=== PATIENT | female | born 1970 | race African-American/Black ===

== ENCOUNTER 2019-04-10 16:17 | Emergency (ER) | payer OTHER ==
[~2019-04-10] VITALS: Ht 162.6 cm; Wt 58.5 kg
[~2019-04-10 16:17] MED LIST: ALBUTEROL INHAL17 GM; ALBUTEROL INHAL17 GM IH; AMOXICILLIN 50500 MG PO; CALCIUM OYSTER500 MG PO; FLEXERIL PO; HYDROCODON-ACE1 EACH PO; IBUPROFEN 600600 M1 PO; IBUPROFEN200 M2 PO; MOTRIN IB200 MG PO; NAPROSYN500 MG PO; NORCO 5-325 TA1 EACH PO; PERCOCET 5-3251 EACH PO; PROZAC20 MG PO; SYNTHROID50 MCG PO; TRAMADOL 50 MG50 MG PO; VITAMIN D400 UNI1 PO
[2019-04-10 17:13] LABS: BASOPHILS 1.2 % (0.0-2.0); EOSINOPHILS 3.3 % (0.0-3.0); LYMPHOCYTES 50.4 % (24.0-44.0); MCHC 33.4 g/dL (28.0-37.0); MCV 89.9 fL (80.0-100.0); MONOCYTES 7.2 % (1.0-8.0); PLATELET COUNT 217 thou/uL (150-400); POLYS 37.9 % (36.0-66.0); RBC 4.34 mil/uL (4.20-5.00); RDW 16.8 % (10.5-14.5); WBC 5.3 thou/uL (4.0-11.0)
[2019-04-10 17:19] LABS: CALCIUM 9.2 mg/dL (8.5-10.1); POTASSIUM 4.1 mmol/L (3.5-5.1)
[2019-04-10 17:25] LABS: ALBUMIN 3.2 g/dL (3.4-5.0); TOTAL BILIRUBIN 0.1 mg/dL (<0.1-1.0); TOTAL PROTEIN 6.9 g/dL (6.4-8.2)
[2019-04-10] MEDS ORDERED: MUCINEX D ER 11 EACH PO (17:30)
[2019-04-10] MEDS ORDERED: TESSALON PERLE100 MG PO (17:30)
[2019-04-10] MEDS ORDERED: PREDNISONE 20 M20 MG PO (17:30)
[2019-04-10] MEDS ORDERED: PROAIR HFA8.5 GM INH (17:30)
[2019-04-10 18:11] VITALS: BP 163/84
--- NOTE | 2019-04-11 17:06 | EKG ---
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 04/11/19 1705 1632 1632 Lito Lauren MD, FACC /EPI
== END 2019-04-10 18:12 | disposition home or self-care (01) ==
LOC: ER 16:17
PROVIDERS: Nurse Practitioner Family
DX: J40 Bronchitis, not specified as acute or chronic (principal); M19.90 Unspecified osteoarthritis, unspecified site; F17.210 Nicotine dependence, cigarettes, uncomplicated